=== PATIENT | female | born 1945 | race Caucasian/White ===

== ENCOUNTER 2022-11-25 11:20 | Inpatient (IN) | payer MEDICARE ==
[~2022-11-25] VITALS: Ht 162.6 cm; Wt 70.3 kg
--- NOTE | 2022-11-25 11:35 | NUR ---
ELIZABETH a transporter (Next step) from [facility] in [place], [place] for medical clearance and admission to MHU. No information/paperwork received from psych intake. Pt arrives with only discharge paperwork from sending facility, no H+P or results of any tests. Charge nurse last night left written note of telephone report he received. Per note, pt was brought to [facility] by her for intentional overdose on handful of oxycontin 4mg and BP medication. Past medical history: HTN, chronic back pain, depression, insomnia. ALG: Sulfa
--- NOTE | 2022-11-25 11:40 | NUR ---
Nursing framing mill supervisor notified for 1:1 sitter per hospital policy and pt safety.
[2022-11-25] MEDS ORDERED: LORA0.5T48 PO (11:44)
[2022-11-25] MEDS ORDERED: QUET25TA PO (11:44)
[2022-11-25] MEDS ORDERED: AMLO10TA59 PO (11:44)
[2022-11-25] MEDS ORDERED: NALO4SPR NS (11:44)
[2022-11-25] MEDS ORDERED: METAMUCIL (11:44)
[2022-11-25] MEDS ORDERED: DULO60CA45 PO (11:44)
[2022-11-25] MEDS ORDERED: OXYC10TA49 PO (11:44)
[2022-11-25] MEDS ORDERED: MELO-107 PO (11:44)
[2022-11-25] MEDS ORDERED: DICLOFENAC 1% GEL (11:44)
[2022-11-25] MEDS ORDERED: GABA-536 PO (11:44)
[2022-11-25 12:04] LABS: HEMATOCRIT 43.4 % (31.2-41.9); MEAN CORPUSCULAR VOLUME 89.7 fL (75.5-95.3); PLATELET COUNT (AUTO) 310 K/uL (179-408)
[2022-11-25 12:37] LABS: *BILIRUBIN,URIN NEGATIVE (NEGATIVE); *BLOOD, URINE 2+ (NEGATIVE); *CLARITY,URINE CLEAR (CLEAR); *COLOR,URINE YELLOW (YELLOW); *KETONES,URINE NEGATIVE (NEGATIVE); *UROBILINOGEN,URINE 0.2 E.U./dl (NORMAL); LEUKOCYTE ESTERASE ,URINE 1+ (NEGATIVE); NITRITE, URINE NEGATIVE (NEGATIVE); PH,URINE 6.5 (5.0-8.0); UGLUCOSE NEGATIVE (NEGATIVE)
[2022-11-25 12:38] LABS: ALANINE AMINOTRANSFERASE 13 U/L (14-59); ALKALINE PHOSPHATASE 94 U/L (50-136); ASPARTATE AMINOTRANSFERASE 10 U/L (15-37); BILIRUBIN,DIRECT 0.1 mg/dL (0.0-0.2); BILIRUBIN,TOTAL 0.3 mg/dL (0.2-1.0); CARBON DIOXIDE 28 mmol/L (21-32); CHLORIDE 98 mmol/L (98-107); CREATININE 0.7 mg/dL (0.6-1.3); POTASSIUM 3.7 mmol/L (3.5-5.1); TOTAL PROTEIN, SERUM 7.2 g/dL (6.4-8.2); UREA NITROGEN, BLOOD 11 mg/dL (7-18)
--- NOTE | 2022-11-25 12:48 | NUR ---
Patient is now eating lunch tray with good appetite, pending medical clearance by Dr Jeffrey hoyt for the psych vegetable harvest worker to evaluate this patient for possible MHU admission.
[2022-11-25 12:49] LABS: THYROID STIMULATING HORMONE 1.341 mIU/mL (0.358-3.740)
[2022-11-25 13:14] LABS: *AMPHETAMINE, URINE NEGATIVE (NEGATIVE); *CANNABINOID, URINE NEGATIVE (NEGATIVE); *COCCAINE, URINE NEGATIVE (NEGATIVE); *PHENCYCLIDINE SCREEN,URINE NEGATIVE (NEGATIVE)
[2022-11-25 13:25] LABS: ACETAMINOPHEN < 2.0 ug/mL (10-30)
[2022-11-25] MEDS ORDERED: LORAZEPAM 0.5 MG TABLET PO ONE (13:45)
[2022-11-25] MEDS ORDERED: LORAZEPAM 0.5 MG TABLET ONE (13:48)
[2022-11-25] MEDS ORDERED: KETOROLAC TROMETHAMINE 60 MG INJ IM ONE ×2 (14:34→15:15)
--- NOTE | 2022-11-25 14:44 | NUR ---
Received telephone call from pt's Chapo Don[place]ue, plan of care discussed. Tel.
--- NOTE | 2022-11-25 14:44 | NUR ---
Psych family day care worker Nehemias is now at bedside.
[2022-11-25 14:54] LABS: BACTERIA,URINE FEW /HPF (NONE SEEN); RBC,URINE 0-3 /HPF (0-3); SQUAMOUS EPITHELIAL CELL,UR FEW /HPF (NONE SEEN); WBC,URINE 0-3 /HPF (0-3)
--- NOTE | 2022-11-25 16:00 | NUR ---
Pt trans to MHU, NAD Noted.
[2022-11-25 16:19] VITALS: BP 131/66; TEMP 97.8; O2SAT 99
[2022-11-25] MEDS ORDERED: LORAZEPAM 0.5 MG TABLET PO PRN (16:30)
[2022-11-25] MEDS ORDERED: MAG HYDROX/AL HYDROX/SIMETH 30 ML LIQUID UDC PO PRN (16:30)
[2022-11-25] MEDS ORDERED: ZOLPIDEM 5 MG TABLET PO PRN (16:30)
[2022-11-25] MEDS ORDERED: ACETAMINOPHEN 325 MG TABLET PO PRN (16:30)
[2022-11-25] MEDS: GABAPENTIN 400 MG CAPSULE PO SCH (18:05)
--- NOTE | 2022-11-25 18:11 | NUR ---
GPS Admission Notes: Received a 77 year old female from ER via W/C, on face to face evaluation Patient is Alert x 4, speech clear and coherent. Patient is admitted on 5150 due to intentional overdose on handful of OxyContin 4mg and BP Medication, patient stated, "Is because my depression, I feel hopeless and lost and had many back surgeries". Patient ambulates with FWW, gait is unsteady and with poor balance, Skin is warm to touch and intact, patient requested to showered and wash her hair. All belonging inventory and checked for contraband and sign by patient, orientated to room and unit, patient right book given to patient with involuntary patient advisement. patient verbalized understanding, spoke with patient with patient consent, family member will bring a copy of the Advance Directive, patient is full code. Patient contract for safety, fall and safety precaution implement, emotional support provided. Psychiatrist and Medical Oracle Business Analyst notified of admission.
[2022-11-25] MEDS: MAGNESIUM HYDROXIDE 30 ML LIQUID UDC PO PRN (20:05)
[2022-11-25] MEDS: OXYCODONE HCL 5 MG TABLET PO PRN (20:07)
[2022-11-25 20:25] VITALS: BP 107/78; TEMP 98.2; O2SAT 99
--- NOTE | 2022-11-26 05:52 | NUR ---
Received pt on the hallway. Pt reported back pain and prn medication administered. Pt appears anxious at times, complains about her roommate being loud and having lights on so she is having difficulty falling a sleep. pt denies sucideal ideation.Pt did Verbal contact for safety with this communications writer .safety precaution in place.Will continue to monitor.
[2022-11-26 08:04] VITALS: BP 116/59; TEMP 98.2; O2SAT 98
[2022-11-26 08:08] LABS: HEMATOCRIT 43.3 % (31.2-41.9); MEAN CORPUSCULAR HEMOGLOBIN 30.1 uug (24.7-32.8); MEAN CORPUSCULAR VOLUME 89.5 fL (75.5-95.3); PLATELET COUNT (AUTO) 417 K/uL (179-408)
[2022-11-26] MEDS: GABAPENTIN 400 MG CAPSULE PO SCH ×3 (08:45→16:31)
[2022-11-26] MEDS: MELOXICAM 7.5 MG TABLET PO SCH (08:45)
[2022-11-26] MEDS: AMLODIPINE 10 MG TABLET PO SCH (08:46)
[2022-11-26] MEDS: OXYCODONE HCL 5 MG TABLET PO PRN ×2 (08:51→16:32)
[2022-11-26] MEDS ORDERED: Medication Not On Formulary EA (Meloxicam 15 MG) PO SCH (09:00)
[2022-11-26 09:14] LABS: CREATININE 0.7 mg/dL (0.6-1.3)
[2022-11-26 09:49] LABS: POTASSIUM 3.1 mmol/L (3.5-5.1)
[2022-11-26] MEDS ORDERED: POTASSIUM CHLORIDE 20 MEQ TAB.PRT.SR PO ONE (10:30)
[2022-11-26] MEDS: ESCITALOPRAM OXALATE 10 MG TABLET PO SCH (12:12)
[2022-11-26] MEDS: CYANOCOBALAMIN 1000 MCG/ML VIAL IM SCH (13:00)
--- NOTE | 2022-11-26 14:58 | NUR ---
Received patient in bed alert and oriented x4, isolative and withdrawn suspicious ,stay in her room most of time.c/o chronic back pain OXY.given as needed. ambulating in the unit independently .patient refused to attend in group activity .encouraged to verbalizer her feeling emotions support given.will close monitoring for safety
[2022-11-26 16:38] VITALS: BP 138/65; TEMP 98.1; O2SAT 100
[2022-11-26] MEDS: LORAZEPAM 1 MG TABLET PO PRN (19:03)
[2022-11-26 19:37] VITALS: BP 126/62; TEMP 98.3; O2SAT 99
[2022-11-26] MEDS: QUETIAPINE FUMARATE 25 MG TABLET PO SCH (20:26)
--- NOTE | 2022-11-26 20:30 | NUR ---
Received patient in her room in bed. she is awake A/O x 3. she is able to ambulate independently with steady gait and able to verbalized her feelings. Her mood is low and affect is blunted. she is noted withdrawn, sad face. Upon interview, patient stated that she is here because she wanted to kill herself. she stated, "I was having many thoughts about my pain and my life and all the health problems I have, I felt the only way out is to kill myself". Patient reported that she is depressed but she denied SI or any plans to commit suicide. she is able to verbally CFS, she stated, "I have a loving man, my partner for 20 plus years to live for and I am hopeful my medications will help me get better". patient is reassured for her safety. safety and fall precautions are in place. Her V/S are stable. she was given PO fluids and snacks. will continue to monitor closely.
[2022-11-27 07:48] VITALS: BP 126/62; TEMP 98.3; O2SAT 100
[2022-11-27] MEDS: ESCITALOPRAM OXALATE 10 MG TABLET PO SCH (08:12)
[2022-11-27] MEDS: GABAPENTIN 400 MG CAPSULE PO SCH ×3 (08:12→16:48)
[2022-11-27] MEDS: CYANOCOBALAMIN 1000 MCG/ML VIAL IM SCH (08:12)
[2022-11-27] MEDS: AMLODIPINE 10 MG TABLET PO SCH (08:13)
[2022-11-27] MEDS: MELOXICAM 7.5 MG TABLET PO SCH (08:13)
[2022-11-27] MEDS: OXYCODONE HCL 5 MG TABLET PO PRN ×2 (08:14→15:10)
--- NOTE | 2022-11-27 09:43 | NUR ---
FRANKLYN Family Contact: FRANKLYN spoke with pt's , Sami [phone] who informed this commercial lines underwriter that pt has an advanced directive and DPOA. Sami confirmed he will email this commercial lines underwriter the documents. Per Sami, pt will return home located at [address] [place] [address] under his care with their daughter, Katelyn's help [phone]. Sami stated theyw ill arrange transportation upon discharge if pt is stable to return home. Sami reported they do not have a caregiver at home and it is only him and the pt with the daughter's help who lives close by.
[2022-11-27 16:10] VITALS: BP 140/70; TEMP 98; O2SAT 100
[2022-11-27] MEDS: LORAZEPAM 1 MG TABLET PO PRN (17:45)
[2022-11-27 19:51] VITALS: BP 132/64; TEMP 98.1; O2SAT 99
[2022-11-27] MEDS: QUETIAPINE FUMARATE 25 MG TABLET PO SCH (20:36)
[2022-11-27] MEDS: MAGNESIUM HYDROXIDE 30 ML LIQUID UDC PO PRN (20:51)
--- NOTE | 2022-11-27 21:09 | NUR ---
GPS: Remains depressed and anxious. Denies SI. Re-assured prn. Med.compliant. Needs attended. Safety emphasized. Will continue to monitor.
[2022-11-28 07:49] VITALS: BP 135/69; TEMP 98; O2SAT 98
[2022-11-28 08:15] LABS: CARBON DIOXIDE 29 mmol/L (21-32); CHLORIDE 99 mmol/L (98-107); CREATININE 0.8 mg/dL (0.6-1.3); POTASSIUM 3.4 mmol/L (3.5-5.1); UREA NITROGEN, BLOOD 16 mg/dL (7-18)
[2022-11-28] MEDS: AMLODIPINE 10 MG TABLET PO SCH (09:02)
[2022-11-28] MEDS: GABAPENTIN 400 MG CAPSULE PO SCH ×3 (09:02→17:40)
[2022-11-28] MEDS: ESCITALOPRAM OXALATE 10 MG TABLET PO SCH (09:02)
[2022-11-28] MEDS: CYANOCOBALAMIN 1000 MCG/ML VIAL IM SCH (09:03)
[2022-11-28] MEDS: MELOXICAM 7.5 MG TABLET PO SCH (09:03)
[2022-11-28] MEDS ORDERED: POTASSIUM CHLORIDE 20 MEQ TAB.PRT.SR PO ONE (11:00)
--- NOTE | 2022-11-28 11:10 | NUR ---
FRANKLYN Initial Discharge Note: Pt currently resides at home with her , Sami located at [address] [place] [address] . FRANKLYN spoke with Sami who stated they would like the pt to return home upon discharge. Sami stated they will provide transportation for the pt's return home upon discharge. FRANKLYN will continue to work with pt, Sami, pt's daughter, Katelyn [phone] and to ensure a safe and proper discharge plan for the pt.
[2022-11-28] MEDS: OXYCODONE HCL 5 MG TABLET PO PRN ×2 (12:00→18:21)
--- NOTE | 2022-11-28 12:45 | NUR ---
Firearms Report: Water Registrar completed and submitted a DOJ firearms report for 5150 a danger to herself certifications. A copy of report has been placed in patient chart.
[2022-11-28] MEDS: LORAZEPAM 1 MG TABLET PO PRN (14:47)
[2022-11-28 15:12] VITALS: BP 124/58; TEMP 98.2; O2SAT 98
--- NOTE | 2022-11-28 17:03 | NUR ---
Patient is isolative, withdrawn, not engage in group activities or conversations with peers, anxious. Ativan 1 mg was given at 14:47 for anxiety, effective. Patient complains about chronic lower back pain, Oxycodone 10 mg was given at 12:00 per request, effective. Patient is A/O X 3 to person, place. Reassurance given. Fall and safety precautions implemented.
--- NOTE | 2022-11-28 18:02 | NUR ---
Patient presents some rashes on her back, right side, Grooving Machine Operator was called and ordered Hydrocortisone 1% Q6HR. Addendum: 11/29/22 at 0713 by RADHA SANDS RN Please disregard this note. It's about another patient.
[2022-11-28 20:00] VITALS: BP 151/61; TEMP 98.3; O2SAT 96
[2022-11-28] MEDS: QUETIAPINE FUMARATE 25 MG TABLET PO SCH (20:26)
[2022-11-28] MEDS: SENNOSIDES 1 TABLET PO SCH (20:26)
--- NOTE | 2022-11-28 20:41 | NUR ---
GPS: Remains anxious and depressed but denies SI. Re-assured prn. Contracts for safety at this time. Encouraged to get out of her room more and attend activities during the day. Meds.as ordered. Pain meds.administered as ordered with relief per pt. Safety emphasized.
[2022-11-29] MEDS: OXYCODONE HCL 5 MG TABLET PO PRN ×3 (03:27→16:22)
[2022-11-29 08:05] VITALS: BP 149/74; TEMP 98; O2SAT 98
[2022-11-29] MEDS: AMLODIPINE 10 MG TABLET PO SCH (08:14)
[2022-11-29] MEDS: GABAPENTIN 400 MG CAPSULE PO SCH ×3 (08:14→17:29)
[2022-11-29] MEDS: CYANOCOBALAMIN 1000 MCG/ML VIAL IM SCH (08:15)
[2022-11-29] MEDS: MELOXICAM 7.5 MG TABLET PO SCH (08:15)
[2022-11-29] MEDS: ESCITALOPRAM OXALATE 10 MG TABLET PO SCH (08:15)
[2022-11-29] MEDS: LORAZEPAM 1 MG TABLET PO PRN (13:16)
--- NOTE | 2022-11-29 15:23 | NUR ---
Patient remains withdrawn, isolative, depressed, preoccupied. Ativan 1 mg was given at 13:16 for anxiety, effective. Patient had pain rated 9 on the scale of 1 to 10, Oxycodone 10 mg was given at 09:42 for chronic lower back pain, Mechanical Process Engineer also ordered Lidocaine patch. Patient's son Ross sent Advance Directive and Power of Volunteer Services Assistant through social media community manager e-mail, document shows on section 7 a choice not to prolong life, code status was change to DNR/DNI. Patient is encourage to vent feelings and emotions. Patient denies SI. Fall and safety precautions implemented.
[2022-11-29 15:36] VITALS: BP 134/61; TEMP 98.2; O2SAT 96
--- NOTE | 2022-11-29 16:02 | NUR ---
Clinical SW Note: SW placed a copy of the pt's DPOA papers in the chart and informed charge nurse, Amberly.
[2022-11-29 20:04] VITALS: BP 145/54; TEMP 98.1; O2SAT 98
[2022-11-29] MEDS: SENNOSIDES 1 TABLET PO SCH (20:11)
[2022-11-29] MEDS: QUETIAPINE FUMARATE 25 MG TABLET PO SCH (20:11)
[2022-11-29] MEDS ORDERED: LIDOCAINE 5% PATCH TD SCH (21:00)
--- NOTE | 2022-11-29 21:08 | NUR ---
GPS: Pt.continues to feel anxious and depressed but has no plans to harm self. Re-assured prn. Med.compliant. Safety emphasized. Will continue to monitor.
[2022-11-30] MEDS: OXYCODONE HCL 5 MG TABLET PO PRN ×4 (03:03→23:22)
[2022-11-30 08:00] VITALS: BP 153/68; TEMP 98; O2SAT 98
[2022-11-30] MEDS: ESCITALOPRAM OXALATE 10 MG TABLET PO SCH (08:37)
[2022-11-30] MEDS: GABAPENTIN 400 MG CAPSULE PO SCH ×3 (08:37→17:14)
[2022-11-30] MEDS: MELOXICAM 7.5 MG TABLET PO SCH (08:38)
[2022-11-30] MEDS: AMLODIPINE 10 MG TABLET PO SCH (08:38)
[2022-11-30] MEDS: CYANOCOBALAMIN 1000 MCG/ML VIAL IM SCH (08:38)
--- NOTE | 2022-11-30 14:52 | NUR ---
Patient had court hearing today, and door framer Julia Perez gave probate cause for DTS and GD.
--- NOTE | 2022-11-30 15:21 | NUR ---
Patient remains cooperative, isolative, depressed, not engaging in group activities or conversations with peers, fixated on pain medications due to chronic lower back pain. Oxycodone 10 mg was given at 09:45AM, effective. Patient is A/O X 3 to person, place. Emotional support provided. Fall and safety precautions implemented.
[2022-11-30 15:31] VITALS: BP 160/77; TEMP 98; O2SAT 98
[2022-11-30 20:01] VITALS: BP 138/60; TEMP 98.4; O2SAT 96
[2022-11-30] MEDS: QUETIAPINE FUMARATE 25 MG TABLET PO SCH (20:54)
[2022-11-30] MEDS: SENNOSIDES 1 TABLET PO SCH (20:54)
[2022-11-30] MEDS: LIDOCAINE 5% PATCH TD SCH (20:54)
[2022-11-30] MEDS ORDERED: LACTULOSE 20 G/30 ML LIQUID UDC PO ONE (21:00)
--- NOTE | 2022-12-01 05:41 | NUR ---
Pt received in the room, complaint of lower back pain,PRN effective.Ambulate via walker.needy and anxious at times. compliant with taking medication.Pt able to contact for safety with this senior grant writer.Fall precautions in place . Will continue to monitor.
[2022-12-01] MEDS: LORAZEPAM 1 MG TABLET PO PRN (06:47)
[2022-12-01 08:17] VITALS: BP 139/67; TEMP 98; O2SAT 98
[2022-12-01] MEDS: GABAPENTIN 400 MG CAPSULE PO SCH ×3 (08:34→17:34)
[2022-12-01] MEDS: ESCITALOPRAM OXALATE 10 MG TABLET PO SCH (08:34)
[2022-12-01] MEDS: CYANOCOBALAMIN 1000 MCG/ML VIAL IM SCH (08:35)
[2022-12-01] MEDS: AMLODIPINE 10 MG TABLET PO SCH (08:35)
[2022-12-01] MEDS: MELOXICAM 7.5 MG TABLET PO SCH (08:35)
[2022-12-01] MEDS: OXYCODONE HCL 5 MG TABLET PO PRN ×3 (09:36→20:42)
[2022-12-01] MEDS ORDERED: MINERAL OIL FLEET ENEMA 133 ML BOTTLE RC ONE (14:45)
[2022-12-01 15:36] VITALS: BP 147/91; TEMP 98; O2SAT 99
--- NOTE | 2022-12-01 16:21 | NUR ---
Patient is withdrawn, depressed, more interactive with peers, participating in group activities, anxious and preoccupied at times. Patient was given Oxycodone at 09:36 and 16:01 for chronic lower back pain, effective. Patient was constipated for 6 days, was given scheduled sennosides, milk of magnesia, and lactulose 20 g , not effective. Electronic Industrial Controls Mechanic prescribed fleet enema 133 ml at 15:27, effective. Patient is A/O X 3 to person, place, situation. Patient is encourage to verbalize concerns. Fall and safety precautions implemented.
[2022-12-01] MEDS: LIDOCAINE 5% PATCH TD SCH (20:41)
[2022-12-01] MEDS: QUETIAPINE FUMARATE 25 MG TABLET PO SCH (20:41)
[2022-12-01] MEDS: SENNOSIDES 1 TABLET PO SCH (20:41)
[2022-12-01 20:42] VITALS: BP 140/48; TEMP 98; O2SAT 96
[2022-12-02] MEDS: OXYCODONE HCL 5 MG TABLET PO PRN ×3 (03:33→21:40)
[2022-12-02 08:02] VITALS: BP 135/72; TEMP 98; O2SAT 100
[2022-12-02] MEDS: GABAPENTIN 400 MG CAPSULE PO SCH ×3 (09:30→17:44)
[2022-12-02] MEDS: CYANOCOBALAMIN 1000 MCG/ML VIAL IM SCH (09:30)
[2022-12-02] MEDS: ESCITALOPRAM OXALATE 10 MG TABLET PO SCH (09:30)
[2022-12-02] MEDS: AMLODIPINE 10 MG TABLET PO SCH (09:30)
[2022-12-02] MEDS: MELOXICAM 7.5 MG TABLET PO SCH (09:30)
[2022-12-02] MEDS: ENSURE ENLIVE (VAN) 240 ML LIQUID PO SCH (12:00)
[2022-12-02 16:19] VITALS: BP 143/68; TEMP 98; O2SAT 100
--- NOTE | 2022-12-02 16:50 | NUR ---
Pt is isolative, withdrawn, Pt does not engage in group activities or conversations with peers. Pt is compliant with medications and nursing care Pt is anxious and worried about her family coming to visit and states "I am tired but i do not want to fall asleep and then my family wont see me" What should I do. Reassurance and emotional support provided . Safety precautions implemented. Continue to monitor for safety.
[2022-12-02 20:00] VITALS: BP 153/83; TEMP 97.9; O2SAT 100
[2022-12-02] MEDS: MAGNESIUM HYDROXIDE 30 ML LIQUID UDC PO PRN (21:38)
[2022-12-02] MEDS: LIDOCAINE 5% PATCH TD SCH (21:38)
[2022-12-02] MEDS: SENNOSIDES 1 TABLET PO SCH (21:40)
[2022-12-02] MEDS: QUETIAPINE FUMARATE 25 MG TABLET PO SCH (21:40)
[2022-12-03] MEDS: LORAZEPAM 1 MG TABLET PO PRN ×3 (03:13→20:00)
[2022-12-03] MEDS: ESCITALOPRAM OXALATE 10 MG TABLET PO SCH (08:33)
[2022-12-03] MEDS: OXYCODONE HCL 5 MG TABLET PO PRN ×2 (08:33→15:06)
[2022-12-03] MEDS: AMLODIPINE 10 MG TABLET PO SCH (08:33)
[2022-12-03] MEDS: GABAPENTIN 400 MG CAPSULE PO SCH ×3 (08:33→17:43)
[2022-12-03] MEDS: CYANOCOBALAMIN 1000 MCG/ML VIAL IM SCH (08:34)
[2022-12-03] MEDS: MELOXICAM 7.5 MG TABLET PO SCH (08:34)
[2022-12-03 08:44] VITALS: BP 139/87; TEMP 98.1; O2SAT 100
[2022-12-03] MEDS: ENSURE ENLIVE (VAN) 240 ML LIQUID PO SCH (09:00)
--- NOTE | 2022-12-03 15:28 | NUR ---
Pt is isolative, withdrawn, anxious constantly asking for pain and anxiety medication. Pt is compliant with medications and nursing care. Pt denies SI and verbally contracted for safety. Reassurance and emotional support provided . Safety precautions implemented. Continue to monitor for safety.
--- NOTE | 2022-12-03 16:29 | NUR ---
Pt was in dinning room with significant other Anabelle Trivedi ( [facility]), When she yells for help and comes to nursing station Stating that the patient fell. Pt was laying on the floor. Pt does not appear to be on acute distress vital signs are stable. Pt has an abrasion on back of the head. Pharmacy Tech Ivet and Psychiatrist Dr. Clancy were informed and a CT scan of the head was ordered. Safety measures put in place for falls, continue to monitor for safety. Addendum: 12/03/22 at 1844 by GEORGETTE CRISTOBAL LVN ERROR, WRONG PT DOCUMENTATION
[2022-12-03 16:35] VITALS: BP 141/64; TEMP 98; O2SAT 99
[2022-12-03] MEDS: QUETIAPINE FUMARATE 25 MG TABLET PO SCH (20:15)
[2022-12-03] MEDS: SENNOSIDES 1 TABLET PO SCH (20:15)
[2022-12-03] MEDS: MAGNESIUM HYDROXIDE 30 ML LIQUID UDC PO PRN (20:15)
[2022-12-03] MEDS: LIDOCAINE 5% PATCH TD SCH (20:16)
[2022-12-03 20:25] VITALS: BP 145/63; TEMP 98; O2SAT 99
[2022-12-04] MEDS: OXYCODONE HCL 5 MG TABLET PO PRN ×3 (01:53→18:12)
--- NOTE | 2022-12-04 05:19 | NUR ---
Patient received A&0x3, ambulatory w/ aid of a walker. Patient complaints of being anxious, prn ativan given. She is med compliant. Complaint of not moving BM x2 days so prn MOM given. Patient c/o back pain /. prn oxycodone given. Effective. 2/10 pain scale when re assessed. Patient sleeping well this shift. No aggressive behavior noted. Patient cooperative and complaint with plan of care. Safety measures kept in place at all times.
[2022-12-04] MEDS: LORAZEPAM 1 MG TABLET PO PRN (06:37)
[2022-12-04 07:51] VITALS: BP 124/59; TEMP 98.5; O2SAT 100
[2022-12-04] MEDS: GABAPENTIN 400 MG CAPSULE PO SCH ×3 (08:13→16:46)
[2022-12-04] MEDS: ESCITALOPRAM OXALATE 10 MG TABLET PO SCH (08:13)
[2022-12-04] MEDS: AMLODIPINE 10 MG TABLET PO SCH (08:14)
[2022-12-04] MEDS: MELOXICAM 7.5 MG TABLET PO SCH (08:17)
[2022-12-04] MEDS: ENSURE ENLIVE (VAN) 240 ML LIQUID PO SCH (08:24)
--- NOTE | 2022-12-04 14:01 | NUR ---
GPS: Nursing Notes: Destructive Behavior To Self: Patient is awake and responding to her name, depressed mood and blunted affect, low energy level, needs prompting to participate in therapeutic groups, ambulatory with fww, unable to formulate a viable plan for self care, believe that she is leaving today, redirected and reoriented regarding discharge, cooperative with nursing care, continue to monitor for safety, continue with treatment plan.
[2022-12-04 16:08] VITALS: BP 149/77; TEMP 98.3; O2SAT 100
[2022-12-04] MEDS: QUETIAPINE FUMARATE 25 MG TABLET PO SCH (20:22)
[2022-12-04] MEDS: SENNOSIDES 1 TABLET PO SCH (20:23)
[2022-12-04] MEDS: LIDOCAINE 5% PATCH TD SCH (20:23)
[2022-12-04 21:07] VITALS: BP 158/67; TEMP 98; O2SAT 100
[2022-12-05] MEDS: OXYCODONE HCL 5 MG TABLET PO PRN (01:57)
--- NOTE | 2022-12-05 01:57 | NUR ---
Pt requested Oxycodone 10mg po q6 prn for moderate to severe back pain. 8/10 P/L per pt statement. Safe environment ongoing. Will continue to monitor.
[2022-12-05 08:00] VITALS: BP 167/67; TEMP 97.3; O2SAT 97
[2022-12-05] MEDS: GABAPENTIN 400 MG CAPSULE PO SCH (08:34)
[2022-12-05] MEDS: MELOXICAM 7.5 MG TABLET PO SCH (08:34)
[2022-12-05] MEDS: ESCITALOPRAM OXALATE 10 MG TABLET PO SCH (08:34)
[2022-12-05] MEDS: ENSURE ENLIVE (VAN) 240 ML LIQUID PO SCH (08:35)
[2022-12-05 09:21] VITALS: BP 167/62
[2022-12-05] MEDS: AMLODIPINE 10 MG TABLET PO SCH (09:21)
--- NOTE | 2022-12-05 11:00 | NUR ---
GPS: Nursing Notes: Discharge Notes: Patient is awake and responding to her name, A/Ox4, cooperative with nursing care, following staff directions, denies SI/HI, denies AH/VH, denies discomfort or pain at this time, denies SOB. Picked up by her /GALLO - Sami, transported home via private vehicle. Took all her belonging with her. When asked - Patient stated that she did not bring any cell phone when admitted to the unit. Prescription and instructions given to the patient, escorted to vehicle with staff and w/c. Patient will follow-up with her outpatient Peoplesoft Developer, Dr. Soto. Per Sami, patient will be referred by Dr. Soto to psychiatrists in [place]. In addition, provided psychiatrist referrals for follow-up such as, [facility] [place] [facility] located at [address] [phone] and [facility] located at [address] [place] [address] ([phone]).
--- NOTE | 2022-12-05 11:01 | NUR ---
FRANKLYN Discharge Note: Pt will be home located at [address] [place] [address] via pts , GALLO, Sami [phone] via private vehicle transportation to return home at 11AM. FRANKLYN spoke with Sami who states they are ready to accept the patient home today. Pt is aware and agreeable with discharge plan. Pt is alert and oriented x4, is unable to plan for self-care at this time and is agreeable to return home under her familys care. Pt denies any suicidal or homicidal ideation. Pt will follow-up with her outpatient Certified Nurses Aide, Dr. Soto. Per Sami, pt will be referred by Dr. Soto to psychiatrists in [place]. In addition, FRANKLYN provided psychiatrist referrals for follow-up such as, [facility] [place] [facility] located at [address] [address] and [facility] located at [address] [place] [address] ([phone]). Pt presents with calm mood and congruent affect. PHARMACY: [facility] [address] [place] [address] .
--- NOTE | 2022-12-05 13:58 | NUR ---
FRANKLYN APS Report: FRANKLYN completed an APS report based on pt's son, Ross'rob [phone] allegations towards pt's partner, Sami [phone]. Ross alleges he is concerned for her safety as Bill is restricting all communication between patient and her son, Ross and his . Ross alleges that Bill is not allowing pt to make her own decisions and controlling her. Ross is the third designated person on the DPOA. Pt is alert and oriented x4 and stated she is agreeable to discuss any information with her son and his . [id number]. Pt is agreeable to return home under the care of her partner, Sami. Per nurse, Amberly and Ross, Sami and pt's daughterKatelyn had informed the nursing team to not release information about the pt to her son and his . Per pt, she is agreeable to release information. pt appeared withdrawn and upset at this situation. Ross also stated that their father long time ago and that Sami is the patient's partner. FRANKLYN informed Ross and Director, Dr. Abraham that an APS report has been submitted for further evaluation for the pt's safety concerns to be addressed. APS intake ID: [id number].
== END 2022-12-05 11:00 | disposition home or self-care (01) | DRG 885 ==
LOC: ER 11:20 → GPS 15:47
PROVIDERS: ADMIT Psychiatry & Neurology Psychiatry; ATTEND Internal Medicine
DX: F33.3 Major depressive disorder, recurrent, severe with psychotic symptoms (principal); R45.851 Suicidal ideations; T40.2X2D Poisoning by other opioids, intentional self-harm, subsequent encounter; T46.5X2D Poisoning by other antihypertensive drugs, intentional self-harm, subsequent encounter; Z96.641 Presence of right artificial hip joint; E78.5 Hyperlipidemia, unspecified; E66.9 Obesity, unspecified; Z68.26 Body mass index [BMI] 26.0-26.9, adult; Z91.81 History of falling; Z79.899 Other long term (current) drug therapy; R73.03 Prediabetes; E87.6 Hypokalemia; F41.1 Generalized anxiety disorder; G89.4 Chronic pain syndrome; I10 Essential (primary) hypertension; M54.50 Low back pain, unspecified; Z88.2 Allergy status to sulfonamides; Z98.890 Other specified postprocedural states; E53.8 Deficiency of other specified B group vitamins; R82.81 Pyuria
CPT/HCPCS: 36415; 70450; 71045; 82747; 84443; 85014; 85025; 93005; A4663; G0480; J1885; J3420